=== PATIENT | male | born 1965 | race African-American/Black ===

== ENCOUNTER 2019-12-12 10:00 | Emergency (ER) | payer OTHER ==
[~2019-12-12] VITALS: Ht 170.2 cm; Wt 113.4 kg
--- NOTE | ~2019-12-12 | EMS ---
[address] [address] EMS Patient Care Report Name: MADISON MILLS Room #: DEP AP Gtz#: [id number] Admission: 12/12/19 Attend Phys: Discharge: 12/12/19 Date of : 69 Report #: [id number] THIS REPORT FOR: //name// Report Transmitted: 12/14/2019 11:42 EMS Care Summary [facility] MED-ACT Incident [id number] @ 12/12/2019 09:21 Incident Location [address] Patient MADISON MILLS Male, 54 Years 1965 Patient Address [address] [place] [address] Patient History Hypertension (HTN),Headache, Patient Allergies No known allergies, Patient Medications Amlodipine, Carvedilol, Chief Complaint headache secondary to a cardiac rhythm disturbance Disposition Transported No Lights/[place] Dispatch Reason Sick Person Transported To [facility] Narrative EMS was dispatched for a person who had a syncope episode. Upon EMS arrival the patient was lying in his hospital bed conscious and breathing. Nursing advised the patient drank a cup of coffee, which he never does, and felt light headed and dizzy. Staff activated an emergency response on the patient and placed him on a bed in the ER. Nursing staff established a 20g IV and [address] [address] EMS Patient Care Report Name: MADISON MILLS Room #: DEP AP Gtz#: [id number] Admission: 12/12/19 Attend Phys: Discharge: 12/12/19 Date of : 69 Report #: [id number] administered 500ml of NS prior to EMS arrival. Nursing staff also advised they gave 8mg of Zofran IV. The patient advised he felt fine just a little weak. EMS placed him on the cot and took him to the ambulance for further assessment. EMS placed the patient on the monitor and performed a 12 lead ECG. EMS noted ST elevation in V1 and V2. The 12 lead was transmitted to [facility] for further evaluation. EMS administered 324mg of Aspirin orally and monitored the patient's vital signs. The patient was transported to [facility] for further evaluation. Initial Vitals @09:42P: 65,R: 18,BP: 182/107,Pain: 4/10,GCS: 15,SpO2: 97,Revised Trauma: 12,NV Suspected: false @09:44P: 70,R: 18,Pain: 4/10,GCS: 15,SpO2: 98,NV Suspected: true @09:56P: 68,R: 18,BP: 179/111,Pain: 4/10,GCS: 15,SpO2: 97,Revised Trauma: 12,NV Suspected: true @09:46P: 70,R: 18,Pain: 4/10,GCS: 15,SpO2: 97,NV Suspected: true @09:52P: 65,R: 18,BP: 182/103,Pain: 4/10,GCS: 15,SpO2: 99,Revised Trauma: 12,NV Suspected: true Assessments @09:29MENTAL:Person Oriented,Time Oriented,Event Oriented,Place Oriented,SKIN:HEENT:Head/Face: No Abnormalities,Neck/Airway: No Abnormalities,LUNG SOUNDS:General: No Abnormalities,ABDOMEN:General: No Abnormalities,PELVIS//GI:No Abnormalities,EXTREMITIES:Left Arm: No Abnormalities,Right Arm: No Abnormalities,Left Leg: No Abnormalities,Right Leg: No Abnormalities,PULSE:NEURO:Other, Impression Syncope / Fainting Procedures @09:53Aspirin - 324 Milligrams (mg) - OralResponse: Improved@09:29Oxygen FlowRate: 2 Device: Nasal Cannula (NC) Response: UnchangedSucceeded@09:30Normal Saline (.9% NaCl) 0cc () Site: Antecubital-RightResponse: Unchanged@09:4412-Lead ECGResponse: UnchangedSucceeded@09:4612-Lead ECGResponse: UnchangedSucceeded Timeline 09:20,Call Received 09:21,Dispatched 09:22,En Route 09:28,On Scene 09:29,At Patient 09:29,Oxygen FlowRate: 2 Device: Nasal Cannula (NC) Response: UnchangedSucceeded, 09:30,Normal Saline (.9% NaCl) 0cc Site: Antecubital-Right,Response: Unchanged [facility] [address] [place] [address] EMS Patient Care Report Name: MADISON MILLS Room #: [facility] AP Gtz#: [id number] Admission: 12/12/19 Attend Phys: Discharge: 12/12/19 Date of : 69 Report #: [id number] 09:42,BP: 182/107 M,PULSE: 65,RR: 18 R,SPO2: 97 Ox,ETCO2: ,BG: ,PAIN: 4,GCS: 15, 09:44,12-Lead ECG,Response: UnchangedSucceeded, 09:44,BP: / M,PULSE: 70,RR: 18 R,SPO2: 98 Ox,ETCO2: ,BG: ,PAIN: 4,GCS: 15, 09:46,12-Lead ECG,Response: UnchangedSucceeded, 09:46,BP: / M,PULSE: 70,RR: 18 R,SPO2: 97 Ox,ETCO2: ,BG: ,PAIN: 4,GCS: 15, 09:52,Depart Scene 09:52,BP: 182/103 M,PULSE: 65,RR: 18 R,SPO2: 99 Ox,ETCO2: ,BG: ,PAIN: 4,GCS: 15, 09:53,Aspirin - 324 Milligrams (mg) - Oral,Response: Improved 09:56,BP: 179/111 M,PULSE: 68,RR: 18 R,SPO2: 97 Ox,ETCO2: ,BG: ,PAIN: 4,GCS: 15, 09:57,At Destination 10:30,Call Closed Disclaimer v1.1 Copyright 2020 [employer] This EMS Care Summary contains data elements from the applicable legal record (which may be displayed differently). It is designed to provide pertinent information for the following purposes: continuity of care, clinical quality, and state data reporting. The complete legal record is available to ED staff and administrators of the receiving hospital in [employer]'s Patient Tracker. All data is provided "as is."
--- NOTE | ~2019-12-12 | EMS ---
[address] [address] EMS Patient Care Report Name: MADISON MILLS Room #: REG Ulisses#: [id number] Admission: 12/12/19 Attend Phys: Discharge: Date of : 69 Report #: [id number] THIS REPORT FOR: //name// Report Transmitted: 12/12/2019 10:20 EMS Care Summary [facility] MED-ACT Incident [id number] @ 12/12/2019 09:21 Incident Location [address] Patient MADISON MILLS Male, 54 Years 1965 Patient Address [address] [place] [address] Patient History Hypertension (HTN),Headache, Patient Allergies No known allergies, Patient Medications Amlodipine, Carvedilol, Chief Complaint headache secondary to a cardiac rhythm disturbance Disposition Transported No Lights/[place] Dispatch Reason Sick Person Transported To [facility] Narrative EMS was dispatched for a person who had a syncope episode. Upon EMS arrival the patient was lying in his hospital bed conscious and breathing. Nursing advised the patient drank a cup of coffee, which he never does, and felt light headed and dizzy. Staff activated an emergency response on the patient and placed him on a bed in the ER. Nursing staff established a 20g IV and [address] [address] EMS Patient Care Report Name: MADISON MILLS Room #: REG AP Gtz#: [id number] Admission: 12/12/19 Attend Phys: Discharge: Date of : 69 Report #: [id number] administered 500ml of NS prior to EMS arrival. Nursing staff also advised they gave 8mg of Zofran IV. The patient advised he felt fine just a little weak. EMS placed him on the cot and took him to the ambulance for further assessment. EMS placed the patient on the monitor and performed a 12 lead ECG. EMS noted ST elevation in V1 and V2. The 12 lead was transmitted to [facility] for further evaluation. EMS administered 324mg of Aspirin orally and monitored the patient's vital signs. The patient was transported to [facility] for further evaluation. Initial Vitals @09:42P: 65,R: 18,BP: 182/107,Pain: 4/10,GCS: 15,SpO2: 97,Revised Trauma: 12,OR Suspected: false @09:44P: 70,R: 18,Pain: 4/10,GCS: 15,SpO2: 98,OR Suspected: true @09:56P: 68,R: 18,BP: 179/111,Pain: 4/10,GCS: 15,SpO2: 97,Revised Trauma: 12,OR Suspected: true @09:46P: 70,R: 18,Pain: 4/10,GCS: 15,SpO2: 97,OR Suspected: true @09:52P: 65,R: 18,BP: 182/103,Pain: 4/10,GCS: 15,SpO2: 99,Revised Trauma: 12,OR Suspected: true Assessments @09:29MENTAL:Person Oriented,Time Oriented,Event Oriented,Place Oriented,SKIN:HEENT:Head/Face: No Abnormalities,Neck/Airway: No Abnormalities,LUNG SOUNDS:General: No Abnormalities,ABDOMEN:General: No Abnormalities,PELVIS//GI:No Abnormalities,EXTREMITIES:Left Arm: No Abnormalities,Right Arm: No Abnormalities,Left Leg: No Abnormalities,Right Leg: No Abnormalities,PULSE:NEURO:Other, Impression Syncope / Fainting Procedures @09:53Aspirin - 324 Milligrams (mg) - OralResponse: Improved@09:29Oxygen FlowRate: 2 Device: Nasal Cannula (NC) Response: UnchangedSucceeded@09:30Normal Saline (.9% NaCl) 0cc () Site: Antecubital-RightResponse: Unchanged@09:4412-Lead ECGResponse: UnchangedSucceeded@09:4612-Lead ECGResponse: UnchangedSucceeded Timeline 09:20,Call Received 09:21,Dispatched 09:22,En Route 09:28,On Scene 09:29,At Patient 09:29,Oxygen FlowRate: 2 Device: Nasal Cannula (NC) Response: UnchangedSucceeded, 09:30,Normal Saline (.9% NaCl) 0cc Site: Antecubital-Right,Response: Unchanged [facility] [address] [place] [address] EMS Patient Care Report Name: MADISON MILLS Room #: [facility] AP Gtz#: [id number] Admission: 12/12/19 Attend Phys: Discharge: Date of : 69 Report #: [id number] 09:42,BP: 182/107 M,PULSE: 65,RR: 18 R,SPO2: 97 Ox,ETCO2: ,BG: ,PAIN: 4,GCS: 15, 09:44,12-Lead ECG,Response: UnchangedSucceeded, 09:44,BP: / M,PULSE: 70,RR: 18 R,SPO2: 98 Ox,ETCO2: ,BG: ,PAIN: 4,GCS: 15, 09:46,12-Lead ECG,Response: UnchangedSucceeded, 09:46,BP: / M,PULSE: 70,RR: 18 R,SPO2: 97 Ox,ETCO2: ,BG: ,PAIN: 4,GCS: 15, 09:52,Depart Scene 09:52,BP: 182/103 M,PULSE: 65,RR: 18 R,SPO2: 99 Ox,ETCO2: ,BG: ,PAIN: 4,GCS: 15, 09:53,Aspirin - 324 Milligrams (mg) - Oral,Response: Improved 09:56,BP: 179/111 M,PULSE: 68,RR: 18 R,SPO2: 97 Ox,ETCO2: ,BG: ,PAIN: 4,GCS: 15, 09:57,At Destination 10:30,Call Closed Disclaimer v1.1 Copyright 2020 [employer] This EMS Care Summary contains data elements from the applicable legal record (which may be displayed differently). It is designed to provide pertinent information for the following purposes: continuity of care, clinical quality, and state data reporting. The complete legal record is available to ED staff and administrators of the receiving hospital in [employer] Patient Tracker. All data is provided "as is."
[~2019-12-12 10:00] MED LIST: LISINOPRIL10 MG PO
[2019-12-12] MEDS ORDERED: CARVEDILOL12.5 MG PO (10:18)
[2019-12-12 10:25] LABS: HEMATOCRIT 44.4 % (42.0-52.0); HEMOGLOBIN 15.5 gm/dL (14.0-18.0); MCH 31.8 pg (26.0-34.0); MCV 90.9 fL (80.0-100.0); RBC 4.89 mil/uL (4.50-6.00); RDW 12.8 % (10.5-14.5); WBC 6.9 thou/uL (4.0-11.0)
[2019-12-12 10:39] LABS: URINE BILIRUBIN NEGATIVE (Negative); URINE BLOOD NEGATIVE (Negative); URINE CLARITY CLEAR; URINE COLOR YELLOW; URINE GLUCOSE-RANDOM* NEGATIVE (Negative); URINE KETONES NEGATIVE (Negative); URINE LEUKOCYTES-REFLEX NEGATIVE (Negative); URINE NITRITE-REFLEX NEGATIVE (Negative); URINE PROTEIN (DIPSTICK) 2+ (Negative); URINE SPECIFIC GRAVITY >= 1.030 (1.005-1.035); URINE UROBILINOGEN 0.2 E.U./dl (0.2-1.0)
[2019-12-12 10:45] LABS: ANION GAP 9 mmol/L (7-16); BUN 25 mg/dL (7-18); CALCIUM 8.9 mg/dL (8.5-10.1); CHLORIDE 103 mmol/L (98-107); CO2 28 mmol/L (21-32); CREATININE 1.7 mg/dL (0.7-1.3); GLUCOSE 144 mg/dL (74-106); POTASSIUM 3.6 mmol/L (3.5-5.1); SODIUM 140 mmol/L (136-145)
[2019-12-12 10:49] LABS: ALBUMIN 3.4 g/dL (3.4-5.0); SGOT 31 U/L (15-37); SGPT 58 U/L (30-65); TOTAL BILIRUBIN 0.3 mg/dL (0.2-1.0); TOTAL PROTEIN 7.9 g/dL (6.4-8.2); TROPONIN-I <0.06 ng/mL (<0.06)
[2019-12-12 11:03] LABS: CHOLESTEROL 208 mg/dL (<200); HDL CHOLESTEROL 32 mg/dL (>40); LDL CHOLESTEROL 111 mg/dL (<100); TC:HDL 6.5 Ratio (Not establshd); TRIGLYCERIDE 328 mg/dL (<150); VLDL 66 mg/dL (<40)
[2019-12-12 11:24] LABS: CASTS None Seen /LPF (None Seen); MUCUS 0-3 Light strn/LPF (None Seen); SQUAMOUS 0-3 Few /LPF (0-3); URINE RBC None Seen /HPF (0-2); URINE WBC-REFLEX 0-5 Rare /HPF (0-5)
[2019-12-12 11:25] LABS: BACTERIA-REFLEX None Seen /HPF (None Seen); CRYSTALS None Seen /LPF (None Seen)
--- NOTE | 2019-12-12 12:25 | 2DMMODE ---
[facility] [address] [place] [address] 2 D/M-MODE ECHOCARDIOGRAM Name: MADISON MILLS Shira Room #: REG Ulisses#: [id number] Admission: 12/12/19 Attend Phys: Discharge: Date of : 69 Report #: [id number] THIS REPORT FOR: cc: FAM - Family physician unknown FAM - Family physician unknown Kyle Bolaoñs MD [facility] ~ APPROVED REPORT Study performed: 12/12/2019 11:45:01 EXAM: Comprehensive 2D, Doppler, and color-flow Echocardiogram Patient Location: Echo lab Room #: [facility] Status: routine BSA: 2.22 HR: 69 bpm BP: 154/84 mmHg Rhythm: NSR Other Information Study Quality: Adequate/morbid obesity Indications Uncontrolled HTN, presyncope. Hx: PAF, mild CAD. 2D Dimensions RVDd: 40.13 mm IVSd: 16.00 (7-11mm) LVOT Diam: 23.00 (18-24mm) LVDd: 58.00 mm PWd: 15.00 (7-11mm) Ascending Ao: 35.70 (22-36mm) LVDs: 39.95 (25-40mm) Aortic Root: 35.99 mm Volumes Left Atrial Volume (Systole) Single Plane 4CH: 67.76 mL Single Plane 2CH: 60.17 mL LA ESV Index: 30.00 mL/m2 Aortic Valve AoV Peak Nicola.: 1.49 m/s AO Peak Gr.: 8.84 mmHg LVOT Max P.10 mmHg LVOT Max V: 1.01 m/s YUSRA Vmax: 2.92 cm2 [facility] [address] [place] [address] 2 D/M-MODE ECHOCARDIOGRAM Name: MADISON MILLS Room #: ABRAM Gtz#: [id number] Admission: 12/12/19 Attend Phys: Discharge: Date of : 69 Report #: [id number] Mitral Valve E/A Ratio: 0.6 MV Decel. Time: 277.64 ms MV E Max Nicola.: 0.40 m/s MV A Nicola.: 0.67 m/s MV PHT: 80.52 ms IVRT: 124.57 ms Pulmonary Valve PV Peak Nicola.: 0.81 m/s PV Peak Gr.: 2.62 mmHg Pulmonary Vein P Vein S: 0.47 m/s P Vein D: 0.29 m/s P Vein S/D Ratio: 1.62 Tricuspid Valve TR Peak Nicola.: 2.21 m/s RAP Estimate: 5.00 mmHg TR Peak Gr.: 20.00 mmHg PA Pressure: 25.00 mmHg Left Ventricle Left ventricle is at the upper limits of normal. There is normal LV segmental wall motion. Moderate concentric left ventricular hypertrophy. Left ventricular systolic function is normal. LVEF is 55-60%. Mild diastolic dysfunction is present (impaired relaxation pattern). Right Ventricle The right ventricle is normal size. The right ventricular systolic function is normal. Atria The left atrium size is normal. The right atrium size is normal. Aortic Valve Aortic valve is mildly calcified. No aortic regurgitation is present. There is no aortic valvular stenosis. Mitral Valve The mitral valve is normal in structure. Trace mitral regurgitation. No evidence of mitral valve stenosis. Tricuspid Valve [facility] [address] [place] [address] 2 D/M-MODE ECHOCARDIOGRAM Name: MADISON MILLS Shira [facility] [id number] Admission: 12/12/19 Attend Phys: Discharge: Date of : 69 Report #: [id number] The tricuspid valve is normal in structure. Trace tricuspid regurgitation. Estimated PAP is 25mmHg. Pulmonic Valve The pulmonary valve is normal in structure. Trace pulmonic regurgitation. Great Vessels The aortic root is normal in size. The ascending aorta is normal in size. IVC is normal in size and collapses >50% with inspiration. Pericardium There is no pericardial effusion. <Conclusion> Left ventricle is at the upper limits of normal. Moderate concentric left ventricular hypertrophy. LVEF is 55-60%. Mild diastolic dysfunction is present (impaired relaxation pattern). The right ventricle is normal size. The left atrium size is normal. Aortic valve is mildly calcified. Trace mitral regurgitation. Trace tricuspid regurgitation. Estimated PAP is 25mmHg. The aortic root is normal in size. There is no pericardial effusion. <ELECTRONICALLY SIGNED> By: Kyle Bolaños MD, FACC 12/12/19 1224 1224 1224 Kyle Bolaños MD, FACC /INF
[2019-12-12] MEDS ORDERED: NORVASC 2.5 MG2.5 M1 PO (12:50)
[2019-12-12] MEDS ORDERED: CARVEDILOL25 MG PO (12:50)
[2019-12-12 13:03] VITALS: BP 184/106
--- NOTE | 2019-12-13 07:55 | EKG ---
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: [facility] : 1965 Requested By: Tatiana Concepcion Order Number: [id number] MD: Oliver Márquez Measurements Intervals [place] Rate: 64 P: 45 WI: 170 QRS: -27 QRSD: 110 T: 50 QT: 403 QTc: 416 Interpretive Statements Sinus rhythm RSR' in V1 or V2, probably normal variant Left ventricular hypertrophy Compared to ECG 05/03/2007 16:56:23 T-wave abnormality no longer present Electronically Signed On 12-13-2019 7:55:23 CDT by Oliver Márquez [email or web address] <ELECTRONICALLY SIGNED> By: Oliver Márquez MD, [facility] 12/13/19 0755 1002 1002 Oliver Márquez MD, [facility] /EPI
== END 2019-12-12 13:05 | disposition home or self-care (01) ==
LOC: ER 10:00
PROVIDERS: Internal Medicine Cardiovascular Disease; Student in an Organized Health Care Education/Training Program
DX: R55 Syncope and collapse (principal); I10 Essential (primary) hypertension